=== PATIENT | male | born 1990 | race Hispanic/Latino ===

== ENCOUNTER 2018-10-24 10:54 | Emergency (ER) | payer SELFPAY ==
[~2018-10-24] VITALS: Ht 175.3 cm; Wt 95.3 kg
--- OUTSIDE RECORDS SUMMARY | 2018-10-24 10:57 | XMS REPORT ---
Author Author [facility] Address Unknown Phone Unavailable Care Team Providers Care [employer] Professor Name Role Phone Unavailable Unavailable Payers Payer Name Policy Type Policy Number Effective Date Expiration Date Problems This patient has no known problems. Allergies, Adverse Reactions, Alerts Allergy Name Allergy Type Status Severity Reaction(s) Onset Date Inactive Date Treating Clinician Comments No Known Allergies DA Active U 2018-08-21 00:00:00 No Known Allergies DA Active U 2011-11-06 00:00:00 Medications This patient has no known medications. Results Test Description Test Time Test Comments Text Results Atomic Results Result Comments CBC W/O DIFF 2018-08-21 14:32:00 WHITE BLOOD CELL (test code=WBC) 6.8 K/mm3 4.5-12.5 RED BLOOD CELL (test code=RBC) 5.13 mill/mm3 4.0-5.8 HEMOGLOBIN (test code=HGB) 15.6 gram/dL 13.0-17.5 HEMATOCRIT (test code=HCT) 46.0 % 42.0-52.0 MEAN CELL VOLUME (test code=MCV) 89.7 fL 80-98 MEAN CELL HGB (test code=MCH) 30.4 picogram 27.0-33.0 MEAN CELL HGB CONCETRATION (test code=MCHC) 33.9 gram/dL 33.0-36.0 RED CELL DISTRIBUTION WIDTH (test code=RDW) 12.1 % 11.6-16.2 PLATELET COUNT (test code=PLT) 376 K/mm3 150-450 MEAN PLATELET VOLUME (test code=MPV) 9.3 fL 6.7-11.0 BASIC METABOLIC [id number] 14:24:00* Test Item Value Reference Range Comments SODIUM (test code=NA) 141 mmol/L 136-145 POTASSIUM (test code=K) 3.6 mmol/L 3.5-5.1 CHLORIDE (test code=CL) 106.0 mmol/L 98-107 CARBON DIOXIDE (test code=CO2) 25.0 mmol/L 21-32 ANION GAP (test code=GAP) 13.6 10-20 GLUCOSE (test code=GLU) 94 mg/dL 74-106 BLOOD UREA NITROGEN (test code=BUN) 5 mg/dL 7-18 GLOMERULAR FILTRATION RATE (test code=GFR) > 60 mL/min >=60 Estimated GFR by using Modified MDRD formula.Chronic kidney disease is defined as either kidney damageor GFR <60 mL/min/1.73 m2 for >3 months. CREATININE (test code=CREAT) 0.90 mg/dL 0.7-1.3 BUN/CREATININE RATIO (test code=BUN/CREA) 5.6 10-20 CALCIUM (test code=CA) 8.5 mg/dL 8.5-10.1 [id number] 14:24:00* Test Item Value Reference Range Comments ALCOHOL (test code=ALC) 303 mg/dL 0.0-3.0 INTERPRETIVE DATA NOTE: POSITIVE SCREENING RESULTS SHOULD BE CONSIDERED PRESUMPTIVE.WHEN COLLECTED FOR MEDICAL PURPOSES ONLY. SPECIMEN WILL NOTBE COLLECTED BY CHAIN OF CUSTODY.IF A CONFIRMATION OF POSITIVE RESULTS IS DESIRED, ACONFIRMATION TEST MUST BE REQUESTED BY THE PHYSICIAN AT ANADDITIONAL CHARGE TO THE PATIENT. CBC W/O [id number] 14:23:00* Test Item Value Reference Range Comments WHITE BLOOD CELL (test code=WBC) K/mm3 4.5-12.5 RED BLOOD CELL (test code=RBC) mill/mm3 4.0-5.8 HEMOGLOBIN (test code=HGB) 15.6 gram/dL 13.0-17.5 HEMATOCRIT (test code=HCT) 46.0 % 42.0-52.0 MEAN CELL VOLUME (test code=MCV) fL 80-98 MEAN CELL HGB (test code=MCH) picogram 27.0-33.0 MEAN CELL HGB CONCETRATION (test code=MCHC) gram/dL 33.0-36.0 RED CELL DISTRIBUTION WIDTH (test code=RDW) % 11.6-16.2 PLATELET COUNT (test code=PLT) K/mm3 150-450 MEAN PLATELET VOLUME (test code=MPV) fL 6.7-11.0 BASIC METABOLIC [id number] 14:18:00* Test Item Value Reference Range Comments SODIUM (test code=NA) 141 mmol/L 136-145 POTASSIUM (test code=K) 3.6 mmol/L 3.5-5.1 CHLORIDE (test code=CL) 106.0 mmol/L 98-107 CARBON DIOXIDE (test code=CO2) mmol/L 21-32 ANION GAP (test code=GAP) 10-20 GLUCOSE (test code=GLU) mg/dL 74-106 BLOOD UREA NITROGEN (test code=BUN) mg/dL 7-18 GLOMERULAR FILTRATION RATE (test code=GFR) mL/min >=60 CREATININE (test code=CREAT) mg/dL 0.7-1.3 BUN/CREATININE RATIO (test code=BUN/CREA) 10-20 CALCIUM (test code=CA) mg/dL 8.5-10.1 [id number] 14:18:00* Test Item Value Reference Range Comments ALCOHOL (test code=ALC) mg/dL 0-3 - CT C-SPINE W/O [id number] 13:48:00 Name: DIPIKA TRUJILLO [facility] : 1990 Age/S: 28 / M [address] [facility] Unit #: [id number] Loc: [place] [address] Phys: Andrea Yo MD Acct: [id number] Dis Date: Status: REG ER PHONE #: [phone] Exam Date: 08/21/2018 1330 FAX #: [phone] Reason: Neck Pain EXAMS: CPT CODE: [id number] CT C-SPINE W/O CONTRAST 63326 HISTORY: Neck pain. COMPARISON: CT scan from November 08, 2011. CT cervical spine without contrast: Automated exposure control. No acute fracture of the cervical spine. No prevertebral soft tissue swelling. No canal or foraminal stenosis is noted. Thyroid glands are unremarkable. Superior mediastinum is unremarkable. Lung apices are clear. Anatomic alignment. Vertebral body heights are maintained. Disc spaces are preserved. Uncovertebral joints are preserved. IMPRESSION: No acute fracture. Anatomic alignment. Vertebral body heights are maintained. at 1348 Reported and signed by: Lai Deluca M.D. CC: Andrea Yo MD chnologist:Vito Interiano RT(R),(MR),(CT); CTDI: DLP: Trnscb Date/ Time: 08/21/2018 (1348) [email or web address] Orig Print D/T: S: 04/2018 (9784) CTDI: DLP: PAGE 1 S igned Report - CT HEAD/BRAIN W/O [id number] 13:44:00 Name: DIPIKA TRUJILLO [facility] : 1990 Age/S: 28 / M [address] [facility] Unit #: [id number] Loc: [place] [address] Phys: Andrea Yo MD Acct: [id number] Dis Date: Status: REG ER PHONE #: [phone] Exam Date: 08/21/2018 1330 FAX #: [phone] Reason: HEADACHE s/p seizures, drunk EXAMS: CPT CODE: [id number] CT HEAD/BRAIN W/O CONT 13267 HISTORY: Seizure and headaches. COMPARISON: November 08, 2011. CT brain without contrast: Automated exposure control. No acute intracranial bleeds or extra-axial collections and there is no acute territorial vascular infarction. The harden-white matter differentiation is preserved. The sulci, gyri, ventricles and subarachnoid spaces and the basilar cisterns are normal for patient's age. No herniation or hydrocephalus or midline shift is noted. Fourth ventricle remains midline. Portions of the visualized paranasal sinuses are unremarkable. No obvious bony calvarial defect is noted. IMPRESSION: No acute intracranial bleeds or extra-axial collections. No acute territorial vascular infarction. No herniation or hydrocephalus or midline shift. at 1344 Reported and signed by: Lai Deluca M.D. CC: Andrea Yo MD Technologist:Vito Interiano RT(R),(MR),(CT); CTDI: DLP: Trnscb D ate/Time: 08/21/2018 (8998) [id number] Orig Print D/T: S: 08/21/2018 (9494) CTDI: DLP: PAGE 1 Signed Report
== END 2018-10-24 11:20 | disposition left against medical advice (07) ==
LOC: ER 10:54
DX: R00.2 Palpitations (principal)
CPT/HCPCS: 93005